=== PATIENT | female | born 1970 | race African-American/Black ===

== ENCOUNTER 2017-01-03 20:23 | Inpatient (IN) ==
[2017-01-03] MEDS ORDERED: SODIUM CHLORIDE 0.9% 1,000 ML IV STA (20:51)
[2017-01-03] MEDS ORDERED: PANTOPRAZOLE 40 MG VIAL IV STA (20:51)
[2017-01-03] MEDS ORDERED: ONDANSETRON 4 MG/2 ML VIAL IV STA ×2 (20:51→21:55)
[2017-01-03] MEDS ORDERED: DICYCLOMINE 20 MG/2 ML AMP IM ONE ×2 (20:51→21:05)
[2017-01-03] MEDS ORDERED: METOCLOPRAMIDE 10 MG/2 ML VIAL IV STA (20:51)
--- NOTE | 2017-01-03 20:56 | Emergency Department Note ---
Arrival - Arrival Chief Complaint: Abdominal / Flank Pain Stated Complaint: throwing up ED Nursing Triage Note: Patient complains of vomiting and upper abdomen pain that began on Sunday. Patient actively vomiting upon triage. Patient unable to supply medical history due to vomiting upon triage. Mode of Arrival: Ambulatory Limitations: No Limitations Source: Patient Time Seen by Provider: 01/03/17 20:50 - History of Present Illness HPI Narrative: This 38-year-old black female presents with 3 days of continuous midepigastric crampy abdominal pain associated with nausea and vomiting but without chills, fever, diarrhea, reflux, heartburn, history of pancreatitis, or history of inflammatory bowel disease. The patient does state she has had a history of peptic ulcer disease in the past. Family members relate that she has this situation occur sporadically and in April of this past year has had endoscopy which revealed no etiology for the symptoms. Currently the patient appears uncomfortable and groaning but in no acute medical distress. Onset (ago): day(s) (Patient presents 3 days post onset of symptom) Date of Last Menstrual Period: 12/08/2016 Allergies/Adverse Reactions: Allergies Allergy/AdvReac Type Severity Reaction Status Date / Time No Known Allergies Allergy Unverified 01/03/17 20:30 Home Medications: Home Medications Medication Instructions Recorded Confirmed Type Unable To Obtain [Unable to Obtain] 01/03/17 01/03/17 History Review of System - Review of System 12 point system: reviewed and no additional remarkable complaints except as stated - Review of System Constitutional: Present: as per HPI Gastrointestinal: Present: as per HPI Medical,Surgical,& Family Hx - Social History Smoking Status: Never smoker Frequency of Alcohol Use: None Type of Drug Use: None Exam Physical Examination: GENERAL: Well developed, well nourished black female groaning but in no acute distress. HEENT: Normocephalic. No trauma. Moist mucous membranes. EOMI. PERRLA. ENT NML NECK: Supple. No adenopathy. CARDIAC: Regular. No murmurs. Heart rate 100 CHEST: Clear to auscultation. No respiratory distress. O2 sat 100% ABDOMEN: Soft. Exquisite midepigastric tenderness with hypoactive bowel sounds. EXTREMITIES: No trauma. Normal ROM. No pedal edema. SKIN: No diaphoresis. No rash. NEURO: Alert. Neuro intact no focal deficits. Vital Signs: Vital Signs Temperature 97.3 F L 01/03/17 20:35 Pulse Rate 100 H 01/03/17 20:35 Respiratory Rate 18 01/03/17 20:35 Blood Pressure 151/92 01/03/17 20:35 O2 Sat by Pulse Oximetry 100 01/03/17 20:31 Course - Reevaluation(s) Reevaluation #1: Discussed with patient the need for further evaluation and treatment given her evidence of rhabdo myelolysis and history of peptic ulcer disease. - Consultations Consultation #1: Discussed with hospitalist service will admit for further evaluation treatment. Results - Labs CBC & BMP: 01/03/17 21:11 01/03/17 21:11 Labs: I reviewed the lab and noted the low hematocrit, low potassium, and significantly elevated CK. - Impressions EKG: Sinus rhythm at 78 with normal IN interval and QRS duration. Nonspecific ST changes. Evidence of old inferior NC. No acute injury pattern noted. - Diagnostic Findings Procedure: CT Abdomen and Pelvis: image reviewed by me, report reviewed by me ( No evidence of significant GI disease although bulky fibroid uterus noted with largest fibroid approximately 5 cm in diameter.) Disposition Clinical Impression: Chronic abdominal pain, Anemia, Rhabdomyolysis, Fibroid uterus Case discussed with: patient, patient's family Disposition: Still a Patient Condition: Stable Time of Disposition: 00:32
[2017-01-03] MEDS ORDERED: METOCLOPRAMIDE 10 MG/2 ML VIAL ONE (21:05)
[2017-01-03] MEDS ORDERED: PANTOPRAZOLE 40 MG VIAL IV ONE (21:05)
[2017-01-03] MEDS ORDERED: ONDANSETRON 4 MG/2 ML VIAL ONE ×2 (21:05→21:56)
[2017-01-03 21:27] LABS: Basophils % 0.3 % (0.0-0.8); Eosinophils % 0.1 % (0.00-10.9); Hematocrit 29.7 VOL% (35.7-47.0); Hemoglobin 9.4 GM/DL (12.0-16.0); Immature Granulocytes % 0.3 %; Immature Granulocytes Absolute 0.03 #; Lymphocytes # 2.1 10*3/uL (1.4-4.0); Lymphocytes % 24.8 % (21.3-54.2); Mean Corpuscular HGB Conc 31.6 GM/DL (32-36); Mean Corpuscular Hemoglobin 22 PG (27-34); Mean Corpuscular Volume 69.2 FL (87-102); Mean Platelet Volume 10.4 FL (9.6-12.0); Monocytes # 0.7 10*3/uL (0.11-0.8); Monocytes % 8.5 % (1.7-12.7); Neutrophils # 5.7 10*3/uL (1.4-7.4); Platelet Count 588 T/CUMM (130-400); Red Blood Count 4.29 MC/CUMM (3.8-5.5); Red Cell Distribution Width 17.9 % (9.3-17.3); White Blood Count 8.6 T/CUMM (4-12)
[2017-01-03 22:02] LABS: Lactic Acid 2.5 MMOL/L (0.4-2.0)
[2017-01-03 22:12] LABS: Alanine Aminotransferase 47 U/L (13-56); Albumin 4.6 G/DL (3.4-5.0); Alkaline Phosphatase 183 U/L (45-117); Amylase 51 U/L (25-115); Aspartate Amino Transferase 109 U/L (0-37); Blood Urea Nitrogen 18 MG/DL (7-18); CKMB % 0.3 %; Calcium 10.2 MG/DL (8.5-10.1); Glucose 123 MG/DL (74-106); Osmolality,Calculated 279.5 MOS/KG (273-304); Potassium 3.4 MMOL/L (3.5-5.1); Sodium 139 MMOL/L (136-145); Total Protein 9.3 G/DL (6.4-8.3); Troponin I Only < 0.015 NG/ML (0.00-0.045)
--- NOTE | 2017-01-03 22:49 | Order Completion Report ---
See report scanned to EMR
[2017-01-03 23:19] LABS: Apearance,Urine CLEAR (Clear); Bilirubin,Urine Negative (Negative); Blood, Urine Negative (Negative); Glucose,Urine (UA) Negative (Negative); Ketones,Urine 5 mg/dL (Negative); Mucus,Urine Occasional /LPF (Occasional); Nitrite,Urine Negative (Negative); Protein,Urine Negative; RBC,Urine 1 /HPF (0-4); Squamous Epithelial Cell,Urine Occasional /HPF (0-10); Urine Color Straw (Yellow); Urine Specific Gravity 1.033 (1.001-1.035); Urine Urobilinogen < 2.0 EU/DL (0.2-1.0); WBC,Urine 1 /HPF (0-6)
[2017-01-03 23:30] LABS: Barbiturates Screen,Urine Negative (Negative); Benzodiazepines Screen,Urine Negative (Negative); Cannabinoid Screen,Urine Positive (Negative); Opiate Screen,Urine Negative (Negative); Phencyclidine Screen,Urine Negative (Negative)
[2017-01-03] MEDS ORDERED: PROMETHAZINE 25 MG/1 ML VIAL IM STA (23:38)
[2017-01-03] MEDS ORDERED: PROMETHAZINE 25 MG/1 ML VIAL ONE (23:40)
[2017-01-04] MEDS ORDERED: KETOROLAC 30 MG/1 ML VIAL IV STA (00:21)
[2017-01-04] MEDS ORDERED: ONDANSETRON 4 MG/2 ML VIAL IV PRN (00:28)
[2017-01-04] MEDS ORDERED: PROMETHAZINE 25 MG/1 ML VIAL IM PRN (00:28)
[2017-01-04] MEDS ORDERED: ACETAMINOPHEN 325 MG TABLET PO PRN (00:28)
[2017-01-04] MEDS ORDERED: POTASSIUM CHLORIDE RIDER 10 MEQ in PREMIX 1 EACH IV PRN (00:28)
[2017-01-04] MEDS ORDERED: MAGNESIUM SULF RIDER 2 GM in PREMIX 1 EACH IV PRN (00:28)
[2017-01-04] MEDS ORDERED: HYDROmorphone 2 MG/1 ML VIAL IV PRN (00:28)
[2017-01-04] MEDS ORDERED: MAGNESIUM SULF RIDER 4 GM in PREMIX 1 EACH IV PRN (00:28)
[2017-01-04] MEDS ORDERED: SODIUM CHLORIDE 0.9% 500 ML IV STA (00:38)
--- NOTE | 2017-01-04 00:50 | Hospitalist History & Physical ---
Assessment and Plan (1) Gastroenteritis Status: Acute Current Visit: Yes (2) Acute kidney injury Status: Acute Current Visit: Yes (3) Rhabdomyolysis Status: Acute Current Visit: Yes (4) Increase in transaminases Status: Acute Current Visit: Yes (5) Severe sepsis Status: Acute Current Visit: Yes (6) History of hypothyroidism Status: Acute Current Visit: Yes (7) History of esophageal reflux Status: Acute Assessment and plan: Our plan for this patient is to give patient 1.5 L bolus. Recheck her lactate level in 3 hours. Recheck her CPK in 3 hours. Repeat labs in the morning. Put on IV antibiotics. We will check hepatitis panel. Continue home meds as appropriate. Need to follow-up on the final read of the CT scan. I have gone ahead and ordered a ultrasound to further characterize her fibroids as recommended by the CT scan.. Current Visit: Yes History of Present Illness Chief complaint: Abdominal pain nausea vomiting fever History of present illness: Ms. Da Silva is a 46 year old female with past medical history significant for thyroid disorder hypertension and reflux was in normal state of health for the past few days. Patient stated at this time she developed epigastric pain. She has been vomiting multiple times. She is complaining extreme pain and extreme nausea. Patient does look uncomfortable. She reports some fever. Patient had a CT scan of her abdomen that showed a fibroid but no acute changes. I was consulted for admission Home Medications Medication Instructions Recorded Confirmed Type Unable To Obtain [Unable to Obtain] 01/03/17 01/03/17 History Allergies Allergy/AdvReac Type Severity Reaction Status Date / Time No Known Allergies Allergy Unverified 01/03/17 20:30 Medical,Surgical,& Family Hx - Surgical History Surgical History: noncontributory (Patient denies) - Family History Family History: noncontributory (Patient denies) - Social History Smoking Status: Never smoker Frequency of Alcohol Use: None Type of Drug Use: None (Marijuana positive) 12 point system: reviewed and no additional remarkable complaints except as stated Exam - Constitutional Vitals: Period Temp Pulse Resp BP Sys/Valencia Pulse Ox Last 24 Hr 97.3 F-97.3 F 100-100 18-22 151-151/92-92 100 General appearance: normal weight - Head Head exam: Present: normal inspection - Eye Eye exam: Present: EOMI Pupils: Present: KATELIN - ENT ENT exam: Present: normal exam - Neck Neck exam: Present: normal inspection - Respiratory Respiratory exam: Present: clear to auscultation bilaterally - Cardiovascular Cardiovascular exam: Present: regular rate and rhythm - GI/Abdominal GI/Abdominal exam: Present: hypoactive bowel sounds, tenderness (Epigastric), soft. Absent: rebound - Extremities Exam Extremities exam: Present: normal inspection - Back Exam Back exam: Present: normal inspection - Neurological Exam Neurological exam: Present: alert - Psychiatric Psychiatric exam: Present: normal affect Results - Labs CBC & BMP: 01/03/17 21:11 01/03/17 21:11
[2017-01-04] MEDS ORDERED: KETOROLAC 30 MG/1 ML VIAL ONE (00:59)
[2017-01-04] MEDS: POTASSIUM CHLORIDE INJ 20 MEQ in SODIUM CHLORIDE 0.45% 1,000 ML IV SCH (02:28)
[2017-01-04] MEDS: CIPROFLOXACIN INJ 400 MG in PREMIX 1 EACH IV SCH ×2 (02:28→13:56)
[2017-01-04] MEDS: metroNIDAZOLE INJ 500 MG in PREMIX 1 EACH IV SCH ×3 (04:22→20:02)
[2017-01-04 06:01] LABS: Free T4 (Free Thyroxine) 1.66 NG/DL (0.76-1.46); Thyroid Stimulating Hormone < 0.005 uIU/ml (0.358-3.74)
--- NOTE | 2017-01-04 06:29 | CT Report ---
History: Small bowel obstruction. Abdominal pain Date: 01/03/2017 Study: CT abdomen and pelvis with IV and oral contrast Comparison exam: December 02, 2007 The study was also reviewed by [facility]. Technique: Spiral CT sections were obtained from the lung bases to the pubic symphysis following oral contrast and 100 mL Omnip[address] abdomen: The partially visualized lung bases are generally clear. There is no gross pleural or pericardial effusion. There is some minimal diffuse fatty infiltration of the liver. The gallbladder is surgically absent. The spleen, pancreas, bile ducts, adrenal glands, and kidneys are unremarkable in appearance. There is a circumaortic left renal vein. There is bilateral renal excretion without hydronephrosis. There is no aneurysm of the mildly calcified abdominal aorta. There is no landen bowel obstruction. The appendix is normal. There is no abnormal fluid collection in the upper abdomen. There is no obvious lymphadenopathy by short axis diameter criteria. There is moderate degenerative disc narrowing at L5-S1 with vacuum disc phenomena and moderate anterior spondylosis. CT pelvis: There is bulky lobular enlargement of the uterus, presumably related to leiomyomatous change. There is no pelvic mass or pelvic lymphadenopathy otherwise. The CT exam was performed using one or more of the following dose reduction techniques: Automated exposure control, adjustment of the mA and/or kV according to patient size, or use of iterative reconstruction technique. Impression: Bulky lobular enlargement of the uterus, presumably to leiomyomatous change. Recommend further evaluation with ultrasound to help exclude other underlying pathology No acute process otherwise PROCEDURE INTERPRETED AT [facility] [place] DEPARTMENT OF RADIOLOGY Final Report Signed by: Dr. Leslye Law
[2017-01-04 07:23] LABS: Albumin 3.9 G/DL (3.4-5.0); Bilirubin,Total 0.4 MG/DL (0.2-1.0); Calcium 9.1 MG/DL (8.5-10.1); Osmolality,Calculated 276.7 MOS/KG (273-304); Total Protein 7.6 G/DL (6.4-8.3)
[2017-01-04 07:28] LABS: Free T4 (Free Thyroxine) 1.86 NG/DL (0.76-1.46); Thyroid Stimulating Hormone < 0.005 uIU/ml (0.358-3.74)
[2017-01-04 08:14] LABS: Hepatitis A Ab IgM Quant 0.15 Index; Hepatitis A Ab IgM Result Negative (Negative); Hepatitis B Core IgM Quant 0.12 Index; Hepatitis B Core IgM Result Negative (Negative); Hepatitis B Surface Ag Quant 0.51 Index; Hepatitis B Surface Ag Result Negative (Negative); Hepatitis C Virus Ab Quant 0.05 Index; Hepatitis C Virus Ab Result Negative (Negative)
--- NOTE | 2017-01-04 08:47 | Ultrasound Report ---
History: Masslike enlargement of the uterus on CT. Fibroids Date: 01/04/2017 Study: Transabdominal and transvaginal pelvic ultrasound Comparison exam: CT scan of the abdomen and pelvis 01/03/2017 Real-time ultrasound images are captured and archived. Transabdominal pelvic ultrasound: The anteverted uterus measures 84 x 52 x 63 mm using transabdominal measurements. At least 5 individual rounded masses of heterogeneous echogenicity compatible with uterine leiomyomata are noted. These are predominantly mural and subserosal and measure 37 mm maximum diameter and smaller. There is noted be a 14 mm submucosal lesion as well. The endometrial echo is measured at 8 mm. The right ovary measures 26 x 14 x 14 mm and appears normal. There is nonvisualization of portions of the uterus and nonvisualization of the left adnexal region because of body habitus and bowel gas. Transvaginal images were subsequently acquired. Transvaginal pelvic ultrasound: There is a small nabothian cyst in the cervix. The left ovary is identified and measures 23 x 10 x 9 mm, normal in appearance otherwise. There is a tubular fluid-filled structure in the left adnexal area which could represent hydrosalpinx. There is no free fluid in the pelvis. Impression: Numerous uterine leiomyomata. Evidence of hydrosalpinx on the left. PROCEDURE INTERPRETED AT [facility] DEPARTMENT OF RADIOLOGY Final Report Signed by: Dr. Leslye Law
[2017-01-04 09:30] LABS: Basophils % 0.1 % (0.0-0.8); Hematocrit 25.1 VOL% (35.7-47.0); Hemoglobin 7.9 GM/DL (12.0-16.0); Immature Granulocytes % 0.6 %; Immature Granulocytes Absolute 0.05 #; Lymphocytes # 1.5 10*3/uL (1.4-4.0); Lymphocytes % 16.8 % (21.3-54.2); Mean Corpuscular HGB Conc 31.5 GM/DL (32-36); Mean Corpuscular Hemoglobin 22 PG (27-34); Mean Corpuscular Volume 69.3 FL (87-102); Mean Platelet Volume 10.4 FL (9.6-12.0); Monocytes # 0.7 10*3/uL (0.11-0.8); Monocytes % 8.4 % (1.7-12.7); Neutrophils # 6.5 10*3/uL (1.4-7.4); Neutrophils % 74.1 % (38.7-73.9); Red Blood Count 3.62 MC/CUMM (3.8-5.5); Red Cell Distribution Width 17.6 % (9.3-17.3); White Blood Count 8.7 T/CUMM (4-12)
[2017-01-04 09:31] LABS: Platelet Count 457 T/CUMM (130-400)
[2017-01-04] MEDS: PANTOPRAZOLE 40 MG TABLET PO SCH ×2 (09:43→21:07)
[2017-01-04] MEDS: ENOXAPARIN 40 MG/0.4 ML SYRINGE SUBCUT SCH (09:43)
[2017-01-04] MEDS: SODIUM CHLOR 0.45% KCL 20 MEQ 20 MEQ/1,000 ML BAG IV SCH (13:50)
--- NOTE | 2017-01-04 15:27 | Hospitalist Progress Note ---
Assessment and Plan (1) Gastroenteritis Status: Acute Assessment and plan: NS at 150 ml/hr, cipro and flagyl IV Current Visit: Yes (2) Elevated CPK Status: Acute Assessment and plan: no evidence of rhabdo Current Visit: Yes (3) Hyperthyroidism Status: Acute Assessment and plan: increase tapazole to 10 mg po tid Current Visit: Yes (4) Acute kidney injury Status: Acute Assessment and plan: resolved Current Visit: Yes (5) Increase in transaminases Status: Acute Assessment and plan: Improving without intervention. Question whether patient is an alcoholic. Hepatitis screen is negative Current Visit: Yes (6) Microcytic anemia Status: Acute Assessment and plan: Iron studies needs iron transfusion. Ultrasound shows leiomyomata. need hysterectomy Current Visit: Yes Hospitalist: Subjective Interval history: Patient feels better today. Will advance her diet. Apparently she ate some mayonnaise from a sandwich that she had gotten at a restaurant prior to becoming ill. Exam - Constitutional Vitals: Period Temp Pulse Resp BP Sys/Valencia Pulse Ox Last 24 Hr 97.3 F-98.4 F 68-100 18-22 90-151/50-92 97-100 Exam: Heart Rate-[RRR] Lungs-[CTAB] GI-[+bs soft, NT, cachetic ] Ext-[no edema] Neuro [Motor 5/5], [alert and oriented times 3] psych [normal mood and affect] General [no acute distress] Results - Labs CBC & BMP: 01/04/17 09:17 01/04/17 06:28 Lab Results: I have reviewed the past 24 hour labs - Diagnostic Findings Procedure: CT Abdomen and Pelvis: report reviewed by me, pending (Bulky lobular enlarged uterus, numerous uterine leiomyomata)
[2017-01-04] MEDS ORDERED: methylPREDNISolone SOD SUC 40 MG/1 ML VIAL IV SCH (15:30)
[2017-01-04 16:16] LABS: % Iron Saturation 3.3 % (18-50); Ferritin 5.9 ng/ml (8-252)
[2017-01-04] MEDS ORDERED: IRON DEXTRAN 25 MG in SYRINGE 1 EACH IV ONE (17:30)
[2017-01-04] MEDS ORDERED: SODIUM CHLORIDE 0.9% IV ONE ×2 (18:30→21:00)
[2017-01-04] MEDS ORDERED: IRON DEXTRAN IV ONE ×2 (18:30→21:00)
--- NOTE | 2017-01-04 19:58 | Gastrointestinal Consult Note ---
Assessment and Plan (1) Cyclical vomiting with nausea Status: Acute Assessment and plan: This patient states that she has been having 2-4 episodes of hospitalization per year for the last 15 years. She has been had multiple workups done by Dr. Abbott and by Dr. Xiong before him and probably several other gastroenterologists over the years. She states that she is already had her gallbladder taken out and the numerous scopes have demonstrated no significant cause for the patient's nausea/vomiting. She has had Helicobacter pylori in the past but presumably this is been treated. We will check a stool antigen test for this and attempt to get the patient's most recent EGD from [facility] and Dr. Abbott. The patient appears to have a significant iron deficiency anemia. With a hematocrit at 25.1 hemoglobin of 7.9 but also a MCV of 69.3. Patient is getting iron dextran since her iron was noted to be 15 with a TIBC of 461 and a ferritin level of 5.9. Interestingly her creatinine kinase was noted to be elevated at 2612 with an ALT of 47, AST of 109, alkaline phosphatase 183, and a bilirubin of 0.4. Amylase and lipase levels are normal at 51 and 72 respectively. Given the recurrence of this patient's symptoms I think we need to broaden our potential diagnoses. I am going to check her for G6PD deficiency, sickle cell anemia, and acute intermittent porphyria. One would imagine that if she had been acicular she certainly would have ulcers on her extremities not in the visceral system and so I believe the acute intermittent porphyria is probably somewhat more likely and so will check for delta aminolevulinic acid spot checking the urine as well as total porphyrins and urine porphobilinogen. Current Visit: Yes (2) Epigastric abdominal tenderness Status: Acute Assessment and plan: Again I suspect this patient has had enough endoscopies done at this point, we will check for Helicobacter pylori in the stools however cyclics pain and previous negative GI workup is making us expand our differential at this point to include rare etiologies as mentioned above. Certainly the patient is iron deficient at this time and agree with iron dextran. We will try and get the patient's old EGD results from Dr. Abbott/[place] done in April of this year. I suspect the patient may feel better and be able to be discharged from the hospital but would suggest a follow-up in the office. Current Visit: Yes (3) Iron deficiency anemia Status: Acute Assessment and plan: Agree with treatment with iron dextran. We will continue to follow this after the patient's discharge from the hospital to see if she is fine in between episodes and then develops hemolysis. Current Visit: Yes History of Present Illness Chief complaint: Cyclic nausea and vomiting with extreme abdominal pain History of present illness: Ms. Da Silva is a 46 year old female who has recurrent cyclical episodes of nausea and that have been going on for the last 15 years. She states that she gets hospitalized about 2-4 times per year the only thing she can do is to come in when the pain becomes so severe and vomiting becomes intractable to get IV fluids and some low-level pain medication. Sometimes she is placed on antibiotics as she has been this admission. She states that she has been through numerous GI workups including her most recent EGD done by Dr. Abbott over [facility] in April 2016 (we are attempting to get these records). Patient has been scoped numerous times by Dr. Xiong in the past, 1 of these is on record at the [facility] verifying with the patient stated that nothing was found of any significance: Dr. Xiong scoped this patient on 08/19/07 and so some mild focal gastritis with biopsies that demonstrated positive tissue for Helicobacter pylori. I imagine this is already been treated at this point. Patient has undergone cholecystectomy previously, she states that she is undergone small bowel follow-through in the past and even capsule endoscopy with Dr. Xiong at [facility]. Unfortunately these records are lost to us but he did not mention this in his previous evaluation of 08/21/07. CT scan this admission in the hospital demonstrated normal spleen, pancreas, bile ducts , adrenal glands and kidneys. Again there was bulky enlargement of the uterus due to leiomyomas but this was otherwise unremarkable. The patient feels better now the sharp stabbing pain has abated but she still has some dull achiness in her epigastric region from vomiting. She states that when these episodes do occur they last about 2 days. She has fevers but no chills. She sometimes has sweating in association with these episodes. I am not sure if she has been worked up for acute intermittent porphyria, but I believe this would be helpful at this point. Home Medications Medication Instructions Recorded Confirmed Type amLODIPine [Norvasc] 10 mg PO DAILY 01/04/17 01/04/17 History methIMAzole [Tapazole] 5 mg PO TID 01/04/17 01/04/17 History Allergies Allergy/AdvReac Type Severity Reaction Status Date / Time No Known Allergies Allergy Unverified 01/03/17 20:30 Medical,Surgical,& Family Hx - Medical History Cardio: History of: Hypertension HEENT: History of: Ear Problem (Glasses) - Surgical History Abdominal Surgeries: Surgical HX of: Cholecystectomy, Colonoscopy, EGD - Social History Smoking Status: Never smoker Frequency of Alcohol Use: None Type of Drug Use: None (Marijuana positive) Review of systems: Constitutional: Admits to fever without chills, but positive for recurrent nausea, and vomiting Eyes: Denies dry eyes, and scleral icterus HENT: Denies headaches Cardiovascular: Denies acute chest pain and claudication Respiratory: Denies shortness of breath, wheezing, and difficulty breathing, denies cough Gastrointestinal: As noted in the HPI Genitourinary: Denies dysuria and hematuria Neurologic: Denies vision loss, and loss of sensation Musculoskeletal: Denies joint swelling, but does have some joint stiffness, and muscular weakness Psychiatric: Denies depression and rosibel symptoms Heme-Lymph: Denies easy bruising, lymph node enlargement or tenderness, night sweats, excessive bleeding Allergies-immunologic: Denies pruritus and rhinorrhea Exam - Constitutional Vitals: Period Temp Pulse Resp BP Sys/Valencia Pulse Ox Last 24 Hr 97.3 F-98.7 F 67-100 18-22 90-151/50-92 97-100 General appearance: normal weight - Head Head exam: Present: normal inspection - Eye Eye exam: Present: EOMI Pupils: Present: KATELIN - Respiratory Respiratory exam: Present: clear to auscultation bilaterally. Absent: rhonchi, stridor, wheezes - Cardiovascular Cardiovascular exam: Present: regular rate and rhythm. Absent: bradycardia, diastolic murmur, systolic murmur - GI/Abdominal GI/Abdominal exam: Present: normal bowel sounds, tenderness (From the epigastric region to deep palpation thought secondary to soreness due to nausea and vomiting), soft. Absent: distended, guarding, rebound - Neurological Exam Neurological exam: Present: alert, oriented X3, CN II-XII intact. Absent: motor sensory deficit - Psychiatric Psychiatric exam: Present: normal affect, normal mood - Skin Skin exam: Present: warm Results - Labs CBC & BMP: 01/04/17 09:17 01/04/17 06:28
[2017-01-04] MEDS ORDERED: PROPYLTHIOURACIL 50 MG TABLET PO SCH (21:00)
[2017-01-04] MEDS: methIMAzole 5 MG TABLET PO SCH (21:07)
[2017-01-04] MEDS: SODIUM CHLORIDE 0.9% 1,000 ML IV SCH (21:08)
[2017-01-05] MEDS: SODIUM CHLOR 0.45% KCL 20 MEQ 20 MEQ/1,000 ML BAG IV SCH ×4 (01:16→16:42)
[2017-01-05] MEDS: POTASSIUM CHLORIDE INJ 20 MEQ in SODIUM CHLORIDE 0.45% 1,000 ML IV SCH (01:16)
[2017-01-05] MEDS: metroNIDAZOLE INJ 500 MG in PREMIX 1 EACH IV SCH ×3 (04:30→22:04)
[2017-01-05] MEDS: CIPROFLOXACIN INJ 400 MG in PREMIX 1 EACH IV SCH ×2 (05:28→16:10)
[2017-01-05] MEDS: SODIUM CHLORIDE 0.9% 1,000 ML IV SCH ×4 (05:36→17:20)
[2017-01-05] MEDS: ENOXAPARIN 40 MG/0.4 ML SYRINGE SUBCUT SCH (08:31)
[2017-01-05] MEDS: methIMAzole 5 MG TABLET PO SCH ×3 (08:31→22:03)
[2017-01-05] MEDS: PANTOPRAZOLE 40 MG TABLET PO SCH ×2 (08:31→22:04)
[2017-01-05 08:42] LABS: Basophils % 0.6 % (0.0-0.8); Eosinophils # 0.1 10*3/uL (0.0-0.87); Eosinophils % 1.9 % (0.00-10.9); Hematocrit 23.3 VOL% (35.7-47.0); Hemoglobin 7.4 GM/DL (12.0-16.0); Immature Granulocytes % 0.3 %; Immature Granulocytes Absolute 0.02 #; Lymphocytes # 2.4 10*3/uL (1.4-4.0); Lymphocytes % 37.5 % (21.3-54.2); Mean Corpuscular HGB Conc 31.8 GM/DL (32-36); Mean Corpuscular Hemoglobin 22 PG (27-34); Mean Corpuscular Volume 70.2 FL (87-102); Monocytes # 0.5 10*3/uL (0.11-0.8); Monocytes % 7.4 % (1.7-12.7); Neutrophils # 3.4 10*3/uL (1.4-7.4); Neutrophils % 52.3 % (38.7-73.9); Platelet Count 401 T/CUMM (130-400); Red Blood Count 3.32 MC/CUMM (3.8-5.5); Red Cell Distribution Width 17.8 % (9.3-17.3); White Blood Count 6.5 T/CUMM (4-12)
[2017-01-05 09:02] LABS: Alanine Aminotransferase 31 U/L (13-56); Albumin 3.2 G/DL (3.4-5.0); Alkaline Phosphatase 139 U/L (45-117); Aspartate Amino Transferase 38 U/L (0-37); Bilirubin,Total < 0.39 MG/DL (0.2-1.0); Blood Urea Nitrogen 7 MG/DL (7-18); Calcium 8.7 MG/DL (8.5-10.1); Glucose 118 MG/DL (74-106); Osmolality,Calculated 277.4 MOS/KG (273-304); Potassium 3.8 MMOL/L (3.5-5.1); Sodium 140 MMOL/L (136-145); Total Protein 6.6 G/DL (6.4-8.3)
--- NOTE | 2017-01-05 10:24 | Discharge Summary ---
<Roopa Franco - Last Filed: 01/05/17 11:02> Hospital Course - Hospital Course Hospital Course: Mr Da Silva 46 y/o w/PMHx peptic ulcer disease presented to the ED 01/03/17 for further evaluation of 3 days of continuous midepigastric abd pain, N/V. IN ED: Normal WBC, Stable h&H. K 3.4, Creatinine 1.20, Glucose 123, Lactic acid 2.5, AST 109, Alkaline Phosphatase 183, Total Creatine Kinase 2612, CK-MB 6.7, Protein 9.3, urinalysis negative for infection. Toxicology positive for cannabinoids, Hepatitis panel negative. Abd CT: bulky lobular enlargement of uterus, presumably leiomyomatous change, nothing acute. Pelvis US: numerous uterine leiomyomata, evidence of hydrosalpinx on the left. Hospital Medicine is consulted for further evaluation. Admit;start 1.5 L bolus, recheck lactate level in 3 hours, recheck CPK in 3 hours and repeat labs in the morning; IV antibiotics, blood culture obtained in the ED, and GI consulted. Free T4 1.86, TSH <0.005. Patient's nausea and vomiting was thought to be secondary to gastroenteritis but it also could be due to the exacerbation of her hyperthyroidism. As a precaution we will treat her with a few more days of Cipro p.o. Blood cultures negative no growth. Patient already being treated with Tapazole for hyperthyroidism. We will increase the Tapazole to 10 mg 3 times a day. I am sending her up to see an endocrine doctor at [facility]. Patient has microcytic anemia and needs a hysterectomy. I have given her an iron infusion. Her anemia is stable and does not require a blood transfusion at this time. Patient recently had an EGD at [place]. Patient will be discharged home to follow-up with the women[facility] clinic for hysterectomy and with endocrine at [facility] as she will need radiation to her thyroid to treat her hyperthyroidism. F /U with PMD in 1-2 weeks Patient seen and examined. Hospital course reviewed and edited. Specialty Discharge - Follow Up or Referrals [facility] with: [facility], [facility] [Other] - 2 Weeks (enlarged uterus and anemia, needs hysterectomy call sunday morning to [facility] at [phone] to make any appointment.) endocrine, [facility] [Other] - 04/04/17 2:00 pm (Dr. Hernandez fax- [phone] phone- ) Discharge Plan - Discharge Data Disposition: Disch To Home/Self Care - Discharge Medications New Ondansetron Tab [Zofran Tab] 4 mg PO Q4H #30 tablet Ciprofloxacin Tab [Cipro Tab] 500 mg PO BID #14 tablet Changed methIMAzole [Tapazole] 10 mg PO TID #180 tablet Discontinued amLODIPine [Norvasc] 10 mg PO DAILY - Follow Up or Referral Follow Up: [facility], [facility] [Other] - 2 Weeks (enlarged uterus and anemia, needs hysterectomy call sunday morning to [facility] at [phone] to make any appointment.) endocrine, [facility] [Other] - 04/04/17 2:00 pm (Dr. Hernandez fax- [phone] phone- ) pmd, [Other] - 1 Week - Forms/Instructions Instructions: Gastroenteritis (DC) Exam - Constitutional Vitals: Period Temp Pulse Resp BP Sys/Valencia Pulse Ox Last 24 Hr 98.0 F-98.7 F 59-67 16-20 106-148/49-78 96-98 Discharge Results Procedures and tests throughout hospitalization: Pending Orders 01/03/17 22:59 Blood Culture Stat 01/04/17 20:04 Helicobacter pylori Ag Feces Routine 01/05/17 07:56 Yeuzmjq-6-Koukfsgxx Dehydrogen IN AM 01/06/17 04:00 CMP [Comprehensive Metabolic Panel] IN AM Comp Blood Count Auto Diff IN AM 01/07/17 04:00 CMP [Comprehensive Metabolic Panel] IN AM Comp Blood Count Auto Diff IN AM Labs on day of discharge: Labs from last 24 hours 01/05/17 01/05/17 01/05/17 07:56 07:56 07:56 WBC 6.5 RBC 3.32 L Hgb 7.4 L Hct 23.3 L MCV 70.2 L MCH 22 L MCHC 31.8 L RDW 17.8 H Plt Count 401 H MPV 11.0 Neut % (Auto) 52.3 Lymph % (Auto) 37.5 [place] % (Auto) 7.4 Eos % (Auto) 1.9 Baso % (Auto) 0.6 Neut # (Auto) 3.4 Lymph # (Auto) 2.4 [place] # (Auto) 0.5 Eos # (Auto) 0.1 Baso # (Auto) 0.0 Immature Gran % 0.3 Nucleated RBC % 0.0 Immature Gran # 0.02 Nucleated RBCs # 0.00 Immature Plt Fraction 0.0 Sickle Cell Screen Negative Sodium 140 Potassium 3.8 Chloride 107 Carbon Dioxide 26 Anion Gap 10.8 BUN 7 Creatinine 0.90 GFR Calculation 76 BUN/Creatinine Ratio 7.00 Glucose 118 H Hemoglobin A1c Calculated Osmolality 277.4 Calcium 8.7 Iron TIBC % Saturation Ferritin Total Bilirubin < 0.39 AST 38 H ALT 31 Alkaline Phosphatase 139 H Total Protein 6.6 Albumin 3.2 L Globulin 3.4 Albumin/Globulin Ratio 0.9 L 01/04/17 01/04/17 Unknown Unknown WBC RBC Hgb Hct MCV MCH MCHC RDW Plt Count MPV Neut % (Auto) Lymph % (Auto) [place] % (Auto) Eos % (Auto) Baso % (Auto) Neut # (Auto) Lymph # (Auto) [place] # (Auto) Eos # (Auto) Baso # (Auto) Immature Gran % Nucleated RBC % Immature Gran # Nucleated RBCs # Immature Plt Fraction Sickle Cell Screen Sodium Potassium Chloride Carbon Dioxide Anion Gap BUN Creatinine GFR Calculation BUN/Creatinine Ratio Glucose Hemoglobin A1c 5.4 Calculated Osmolality Calcium Iron 15 L TIBC 461 H % Saturation 3.3 L Ferritin 5.9 L Total Bilirubin AST ALT Alkaline Phosphatase Total Protein Albumin Globulin Albumin/Globulin Ratio Preliminary micro results at discharge 01/03/17 22:59 Blood Culture - Preliminary Blood No growth at 1 day 01/03/17 22:59 Blood Culture - Preliminary Blood No growth at 1 day DS: Provider Date of admission: 01/04/17 00:46 Primary care physician: . No PCP Attending physician on admission: Danilo Houston MD Consults: 01/04/17 00:28 Consult to Physician [CONS] Routine Comment: Consulting Provider: Maximilian Chance Consulting Provider Notified: Yes When should Consulting Provider be notified: Now Consult to Specialist Group: Gastroenterology When should Consulting Provider be notified: In am Person Notified: flaca mckay Date Notified: 01/04/17 Time Notified: 08:20 01/04/17 15:22 Consult to Pharmacy [CONS] Routine Reason for Pharmacy Consult: Other Comment: iron infusion please calculate and infuse Discharging clinician: Roopa Franco NP <Vandana Rothman - Last Filed: 01/05/17 13:26> Hospital Course - Time spent with patient Time with patient DS: Greater than 30 minutes (45 min) Diagnosis - Discharge Diagnosis (1) Gastroenteritis Status: Acute (2) Elevated CPK Status: Acute (3) Hyperthyroidism Status: Acute (4) Acute kidney injury Status: Acute (5) Increase in transaminases Status: Acute (6) Microcytic anemia Status: Acute Discharge Plan - Discharge Data Condition at Discharge: Stable Discharge Diet: regular diet Activity: resume usual activities as tolerated Hygiene: no restrictions Weight Bearing at Discharge: full weight bearing Driving: no restrictions Exam - Constitutional General appearance: no acute distress, under weight - Respiratory Respiratory exam: Present: clear to auscultation bilaterally. Absent: rhonchi, wheezes - Cardiovascular Cardiovascular exam: Present: regular rate and rhythm. Absent: systolic murmur - GI/Abdominal GI/Abdominal exam: Present: normal bowel sounds, soft. Absent: mass - Neurological Exam Neurological exam: Present: alert, oriented X3 - Psychiatric Psychiatric exam: Present: normal affect, normal mood
[2017-01-05] MEDS ORDERED: SODIUM CHLORIDE 0.9% 250 ML IV PRN (12:58)
--- NOTE | 2017-01-05 13:04 | Gastrointestinal Progress Note ---
Assessment and Plan (1) Cyclical vomiting with nausea Status: Acute Assessment and plan: This patient states that she has been having 2-4 episodes of hospitalization per year for the last 15 years. She has been had multiple workups done by Dr. Abbott and by Dr. Xiong before him and probably several other gastroenterologists over the years. She states that she is already had her gallbladder taken out and the numerous scopes have demonstrated no significant cause for the patient's nausea/vomiting. She has had Helicobacter pylori in the past but presumably this is been treated. We will check a stool antigen test for this and attempt to get the patient's most recent EGD from [facility] and Dr. Abbott. The patient appears to have a significant iron deficiency anemia. With a hematocrit at 25.1 hemoglobin of 7.9 but also a MCV of 69.3. Patient is getting iron dextran since her iron was noted to be 15 with a TIBC of 461 and a ferritin level of 5.9. Interestingly her creatinine kinase was noted to be elevated at 2612 with an ALT of 47, AST of 109, alkaline phosphatase 183, and a bilirubin of 0.4. Amylase and lipase levels are normal at 51 and 72 respectively. Given the recurrence of this patient's symptoms I think we need to broaden our potential diagnoses. I am going to check her for G6PD deficiency, sickle cell anemia, and acute intermittent porphyria. One would imagine that if she had been diagnosed with sickle cell anemia she certainly would have ulcers on her extremities not sickling exclusively in the visceral system and so I believe the acute intermittent porphyria is probably somewhat more likely and so will check for delta aminolevulinic acid spot checking the urine as well as total porphyrins and urine porphobilinogen. 01/05/17--the patient's hematocrit is dropped even further today down to 23.3%. MCV is slightly better with a iron dextran she has been given. Patient has clear iron deficiency anemia, the laboratory workup outlined yesterday will not be back for days to weeks. I will be happy to follow her up in 6 weeks in my office to give her the information on what we found today. I think it that I personally would feel more comfortable the patient was discharged from the hospital with a better hematocrit and so we will write for 2 units packed red blood cells today before she goes home this afternoon. Current Visit: Yes (2) Epigastric abdominal tenderness Status: Acute Assessment and plan: Again I suspect this patient has had enough endoscopies done at this point, we will check for Helicobacter pylori in the stools however cyclics pain and previous negative GI workup is making us expand our differential at this point to include rare etiologies as mentioned above. Certainly the patient is iron deficient at this time and agree with iron dextran. We will try and get the patient's old EGD results from Dr. Abbott/Eduardo done in April of this year. I suspect the patient may feel better and be able to be discharged from the hospital but would suggest a follow-up in the office. 01/05/17--this patient has had multiple workups by 2 different GI physicians and with cyclic nausea and vomiting with severe abdominal pain we are continuing the workup to more esoteric diagnoses if the acute intermittent porphyria workup is also negative we can think about checking for heavy metals (poisoning ) possibly related repeating the capsule endoscopy. I know that she is getting the iron dextran at this time but I think I will feel more comfortable with her actually having a improved hematocrit as well. Current Visit: Yes (3) Iron deficiency anemia Status: Acute Assessment and plan: Agree with treatment with iron dextran. We will continue to follow this after the patient's discharge from the hospital to see if she is fine in between episodes and then develops hemolysis. 01/05/17--as mentioned above. Okay to DC patient home today after transfusion. I remain concerned that if the patient is released and she has a significant loss of blood, that with a crit of 23% that potential blood loss could be a terminal event. We will give her 2 units before she goes home. Current Visit: Yes Gastroenterology - PN: Subj Interval history: Liyah feels better at this point, she is gotten IV antibiotics and her iron dextran. I am not sure if she is gotten the urine test done for acute intermittent porphyria which sounds like she might have on the basis of the cyclical nausea and vomiting which has had multiple GI workups done by 2 other physicians over a period of 7 years. I do note now the patient has a drop in her hematocrit 23.3% since her admission and although she is gotten her iron dextran treatments she probably needs 2 units of blood before she walks out the door at this point. I will be happy to follow her up in my office in 6 weeks and recheck her labs and discuss further workup at that point. Exam (Progress Note) - Constitutional Vitals: Period Temp Pulse Resp BP Sys/Valencia Pulse Ox Last 24 Hr 98.0 F-98.8 F 59-67 16-20 106-150/49-78 96-98 General appearance: no acute distress - Head Head exam: Present: normal inspection - Eye Eye exam: Present: EOMI - Respiratory Respiratory exam: Present: clear to auscultation bilaterally - GI/Abdominal GI/Abdominal exam: Present: normal bowel sounds, soft. Absent: distended, guarding, tenderness - Extremities Exam Extremities exam: Absent: edema - Neurological Exam Neurological exam: Present: alert, oriented X3 - Psychiatric Psychiatric exam: Present: normal affect, normal mood - Skin Skin exam: Present: warm Results - Labs CBC & BMP: 01/05/17 07:56 01/05/17 07:56 Specialty Discharge - Follow Up or Referrals Follow up with: [facility], [facility] [Other] - 2 Weeks (enlarged uterus and anemia, needs hysterectomy call sunday morning to [facility] at [phone] to make any appointment.) endocrine, [facility] [Other] - 04/04/17 2:00 pm (Dr. Hernandez fax- [phone] phone- )
[2017-01-05] MEDS ORDERED: INFLUENZA VIRUS VACCINE 0.5 ML SYRINGE IM ONE (14:45)
[2017-01-06 02:12] LABS: Basophils # 0.1 10*3/uL (0.0-0.2); Basophils % 0.8 % (0.0-0.8); Eosinophils # 0.2 10*3/uL (0.0-0.87); Eosinophils % 2.2 % (0.00-10.9); Hematocrit 33.9 VOL% (35.7-47.0); Hemoglobin 10.9 GM/DL (12.0-16.0); Immature Granulocytes % 0.2 %; Immature Granulocytes Absolute 0.02 #; Lymphocytes % 32.8 % (21.3-54.2); Mean Corpuscular HGB Conc 32.2 GM/DL (32-36); Mean Corpuscular Hemoglobin 24 PG (27-34); Mean Corpuscular Volume 73.4 FL (87-102); Mean Platelet Volume 10.2 FL (9.6-12.0); Monocytes # 0.7 10*3/uL (0.11-0.8); Neutrophils # 5.3 10*3/uL (1.4-7.4); Platelet Count 414 T/CUMM (130-400); Red Blood Count 4.62 MC/CUMM (3.8-5.5); Red Cell Distribution Width 18.3 % (9.3-17.3); White Blood Count 9.3 T/CUMM (4-12)
[2017-01-06 02:46] LABS: Albumin 3.7 G/DL (3.4-5.0); Bilirubin,Total 0.8 MG/DL (0.2-1.0); Calcium 9.1 MG/DL (8.5-10.1); Osmolality,Calculated 278.3 MOS/KG (273-304); Potassium 3.9 MMOL/L (3.5-5.1); Total Protein 7.4 G/DL (6.4-8.3)
[2017-01-06] MEDS: CIPROFLOXACIN INJ 400 MG in PREMIX 1 EACH IV SCH (04:28)
[2017-01-06] MEDS: metroNIDAZOLE INJ 500 MG in PREMIX 1 EACH IV SCH (06:39)
[2017-01-06] MEDS: SODIUM CHLORIDE 0.9% 1,000 ML IV SCH (09:26)
[2017-01-06] MEDS: SODIUM CHLOR 0.45% KCL 20 MEQ 20 MEQ/1,000 ML BAG IV SCH (09:27)
[2017-01-06] MEDS: PANTOPRAZOLE 40 MG TABLET PO SCH (10:24)
[2017-01-06] MEDS: methIMAzole 5 MG TABLET PO SCH (10:26)
--- NOTE | 2017-01-06 13:06 | Gastrointestinal Progress Note ---
Assessment and Plan (1) Cyclical vomiting with nausea Status: Acute Assessment and plan: This patient states that she has been having 2-4 episodes of hospitalization per year for the last 15 years. She has been had multiple workups done by Dr. Abbott and by Dr. Xiong before him and probably several other gastroenterologists over the years. She states that she is already had her gallbladder taken out and the numerous scopes have demonstrated no significant cause for the patient's nausea/vomiting. She has had Helicobacter pylori in the past but presumably this is been treated. We will check a stool antigen test for this and attempt to get the patient's most recent EGD from [facility] and Dr. Abbott. The patient appears to have a significant iron deficiency anemia. With a hematocrit at 25.1 hemoglobin of 7.9 but also a MCV of 69.3. Patient is getting iron dextran since her iron was noted to be 15 with a TIBC of 461 and a ferritin level of 5.9. Interestingly her creatinine kinase was noted to be elevated at 2612 with an ALT of 47, AST of 109, alkaline phosphatase 183, and a bilirubin of 0.4. Amylase and lipase levels are normal at 51 and 72 respectively. Given the recurrence of this patient's symptoms I think we need to broaden our potential diagnoses. I am going to check her for G6PD deficiency, sickle cell anemia, and acute intermittent porphyria. One would imagine that if she had been diagnosed with sickle cell anemia she certainly would have ulcers on her extremities not sickling exclusively in the visceral system and so I believe the acute intermittent porphyria is probably somewhat more likely and so will check for delta aminolevulinic acid spot checking the urine as well as total porphyrins and urine porphobilinogen. 01/05/17--the patient's hematocrit is dropped even further today down to 23.3%. MCV is slightly better with a iron dextran she has been given. Patient has clear iron deficiency anemia, the laboratory workup outlined yesterday will not be back for days to weeks. I will be happy to follow her up in 6 weeks in my office to give her the information on what we found today. I think it that I personally would feel more comfortable the patient was discharged from the hospital with a better hematocrit and so we will write for 2 units packed red blood cells today before she goes home this afternoon. 01/06/17--patient's hematocrit is now up to 33.9 and MCV is starting to rise as a result of being given iron dextran. She will need to follow-up in my office in 6 weeks as mentioned above will review her laboratories from the hospital that were taken. Current Visit: Yes (2) Epigastric abdominal tenderness Status: Acute Assessment and plan: Again I suspect this patient has had enough endoscopies done at this point, we will check for Helicobacter pylori in the stools however cyclics pain and previous negative GI workup is making us expand our differential at this point to include rare etiologies as mentioned above. Certainly the patient is iron deficient at this time and agree with iron dextran. We will try and get the patient's old EGD results from Dr. Abbott/Eduardo done in April of this year. I suspect the patient may feel better and be able to be discharged from the hospital but would suggest a follow-up in the office. 01/05/17--this patient has had multiple workups by 2 different GI physicians and with cyclic nausea and vomiting with severe abdominal pain we are continuing the workup to more esoteric diagnoses if the acute intermittent porphyria workup is also negative we can think about checking for heavy metals (poisoning ) possibly related repeating the capsule endoscopy. I know that she is getting the iron dextran at this time but I think I will feel more comfortable with her actually having a improved hematocrit as well. 01/06/17--improved. Current Visit: Yes (3) Iron deficiency anemia Status: Acute Assessment and plan: Agree with treatment with iron dextran. We will continue to follow this after the patient's discharge from the hospital to see if she is fine in between episodes and then develops hemolysis. 01/05/17--as mentioned above. Okay to DC patient home today after transfusion. I remain concerned that if the patient is released and she has a significant loss of blood, that with a crit of 23% that potential blood loss could be a terminal event. We will give her 2 units before she goes home. 01/06/17--okay to discharge from my standpoint, will follow back up in 6 weeks. I will sign off at this time, thank you for this interesting consult. Current Visit: Yes Gastroenterology - PN: Subj Interval history: Still doing fine, ready to go home now. Feels much better status post blood transfusion with improved hematocrit from 23.3 percent-->33.9% Exam (Progress Note) - Constitutional Vitals: Period Temp Pulse Resp BP Sys/Valencia Pulse Ox Last 24 Hr 97.5 F-99.4 F 51-66 16-20 103-157/64-98 97-100 General appearance: no acute distress - Head Head exam: Present: normocephalic - Eye Eye exam: Present: EOMI - Respiratory Respiratory exam: Present: clear to auscultation bilaterally - Cardiovascular Cardiovascular exam: Present: regular rate and rhythm - GI/Abdominal GI/Abdominal exam: Present: normal bowel sounds, tenderness (Mild epigastric). Absent: distended, guarding, rebound, soft - Extremities Exam Extremities exam: Absent: edema - Neurological Exam Neurological exam: Present: alert, oriented X3 Results - Labs CBC & BMP: 01/06/17 01:30 01/06/17 01:30 Specialty Discharge - Follow Up or Referrals Follow up with: [facility], [facility] [Other] - 2 Weeks (enlarged uterus and anemia, needs hysterectomy call sunday morning to [facility] at [phone] to make any appointment.) endocrine, [facility] [Other] - 04/04/17 2:00 pm (Dr. Hernandez fax- [phone] phone- ) dr marixa [Other] - 1 Week
[2017-01-06 15:46] VITALS: BP 132/69
--- NOTE | 2017-01-09 13:04 | Physician Query Form ---
CLICK EDIT DOCUMENT TO SELECT QUERY ANSWER --> OK --> SIGN Laury Rodrigues RN Clinical Battery Charger Tester W) [phone] (f) [phone] [email or web address]: Make your selection(s) from the choices in EACH section by typing an "x" and enter comments in the comment section. Please use your independent medical judgment in providing your response. This request does not imply that any particular answer is desired or expected. CLINICAL INDICATORS: (Providers should not edit this section) Based on documentation of "Acute severe sepsis" "Acute gastroenteritis" "Acute iron deficiency anemia" admitting vitals of 97.3, 100, 18, 151/92, 100%. BP as low as 90/50. WBC of 8.6. Lacitc acid of 2.5. "Acute kidney injury" Treated with NS boluses, IV Solu Medrol, IV Flagyl, and 1/2 NS with KCL infusion. Based on the above, could you clarify the appropriate diagnosis, if significant , that supports the above abnormalities and additional evaluation, monitoring, and/or treatment rendered: ( ) Treated for Severe Sepsis ( ) Treated for Severe Sepsis with Septic Shock (x ) NOT Treated for Severe Sepsis ( ) Other, please specify: treated for gastroenteritis, hyperthyroidism, IRON anemia ( ) Clinically unable to determine COMMENTS: PLEASE ALSO DOCUMENT RESPONSE IN PROGRESS NOTES AND/OR DISCHARGE SUMMARY Use of terms such as suspected, likely, or probable (associated with a specific diagnosis that is being evaluated, monitored, or treated as if it exists) are acceptable and can be restated in the discharge summary if not ruled out. MTDD
--- NOTE | 2017-01-17 08:10 | Physician Query Form ---
CLICK EDIT DOCUMENT TO SELECT QUERY ANSWER --> OK --> SIGN Laury Rodrigues RN Clinical Drop Wire Aliner W) [phone] (f) [phone] [email or web address]: Make your selection(s) from the choices in EACH section by typing an "x" and enter comments in the comment section. Please use your independent medical judgment in providing your response. This request does not imply that any particular answer is desired or expected. CLINICAL INDICATORS: (Providers should not edit this section) Height: 5'3" Weight: 109 Airport Manager BMI: 19.3 Nutritional supplements: Cone Picker notes: LOW BMI Other clinical notes: NORMAL WEIGHT, CACHECTIC Based on the above, which following choice most accurately represents the patient's nutritional status? (x ) Malnutrition ( ) mild ( x) moderate ( ) severe ( ) Protein calorie malnutrition ( ) mild ( ) moderate ( ) severe ( ) Emaciation due to malnutrition ( ) Nutritional marasmus ( ) Underweight ( ) No nutritional deficiency ( ) Other, please specify: ( ) Clinically unable to determine Mild Malnutrition (BMI < 18.5, % Normal Body Weight 85-95%) Moderate Malnutrition (BMI < 17, % Normal Body Weight 75-85%) Severe Malnutrition (BMI < 16, % Normal Body Weight < 75%) Source: [place] COMMENTS: PLEASE ALSO DOCUMENT RESPONSE IN PROGRESS NOTES AND/OR DISCHARGE SUMMARY Use of terms such as suspected, likely, or probable (associated with a specific diagnosis that is being evaluated, monitored, or treated as if it exists) are acceptable and can be restated in the discharge summary if not ruled out. MTDD
== END 2017-01-06 13:52 | disposition home or self-care (01) | DRG 812 ==
LOC: N.ED 20:23 → N.EDINP 01-04 00:46 → SUATTDRO 01-04 00:46 → N.3E 01-04 01:12
PROVIDERS: ADMIT Internal Medicine; ATTEND Internal Medicine

== ENCOUNTER 2017-08-28 00:44 | Inpatient (IN) ==
[2017-08-28] MEDS ORDERED: MORPHINE 4 MG/1 ML VIAL IV STA ×2 (01:38→03:19)
[2017-08-28] MEDS ORDERED: ONDANSETRON 4 MG/2 ML VIAL IV STA (01:38)
[2017-08-28] MEDS ORDERED: SODIUM CHLORIDE 0.9% 1,000 ML IV STA (01:38)
[2017-08-28 02:52] LABS: Basophils % 0.4 % (0.0-0.8); Hematocrit 35.9 VOL% (35.7-47.0); Hemoglobin 12.7 GM/DL (12.0-16.0); Immature Granulocytes % 0.6 %; Immature Granulocytes Absolute 0.06 #; Lymphocytes # 0.8 10*3/uL (1.4-4.0); Lymphocytes % 7.5 % (21.3-54.2); Mean Corpuscular HGB Conc 35.4 GM/DL (32-36); Mean Corpuscular Hemoglobin 31 PG (27-34); Mean Corpuscular Volume 88.9 FL (87-102); Mean Platelet Volume 11.4 FL (9.6-12.0); Monocytes # 0.3 10*3/uL (0.11-0.8); Monocytes % 2.9 % (1.7-12.7); Neutrophils # 9.6 10*3/uL (1.4-7.4); Neutrophils % 88.6 % (38.7-73.9); Platelet Count 486 T/CUMM (130-400); Red Blood Count 4.04 MC/CUMM (3.8-5.5); Red Cell Distribution Width 12.6 % (9.3-17.3); White Blood Count 10.9 T/CUMM (4-12)
[2017-08-28 03:06] LABS: Alanine Aminotransferase 23 U/L (13-56); Albumin 4.7 G/DL (3.4-5.0); Alkaline Phosphatase 98 U/L (45-117); Aspartate Amino Transferase 23 U/L (0-37); Blood Urea Nitrogen 9 MG/DL (7-18); Calcium 9.7 MG/DL (8.5-10.1); Glucose 189 MG/DL (74-106); Lactic Acid 3.5 MMOL/L (0.4-2.0); Osmolality,Calculated 280.5 MOS/KG (273-304); Potassium 3.2 MMOL/L (3.5-5.1); Sodium 139 MMOL/L (136-145); Total Protein 8.6 G/DL (6.4-8.3)
[2017-08-28] MEDS ORDERED: METOCLOPRAMIDE 10 MG/2 ML VIAL IV STA (03:19)
[2017-08-28 03:51] LABS: Apearance,Urine CLEAR (Clear); Bilirubin,Urine Negative (Negative); Blood, Urine Negative (Negative); Glucose,Urine (UA) 50 mg/dL (Negative); Ketones,Urine 20 mg/dL (Negative); Mucus,Urine Occasional /LPF (Occasional); Nitrite,Urine Negative (Negative); Protein,Urine Negative; RBC,Urine <1 /HPF (0-4); Squamous Epithelial Cell,Urine Occasional /HPF (0-10); Urine Color Yellow (Yellow); Urine Specific Gravity 1.011 (1.001-1.035); Urine Urobilinogen < 2.0 EU/DL (0.2-1.0)
[2017-08-28] MEDS ORDERED: MORPHINE 4 MG/1 ML VIAL IV PRN (04:33)
[2017-08-28] MEDS ORDERED: PROMETHAZINE 25 MG/1 ML VIAL IM PRN (04:33)
[2017-08-28] MEDS ORDERED: HYOSCYAMINE 0.125 MG TABLET PO PRN (04:37)
[2017-08-28] MEDS ORDERED: KETOROLAC 15 MG/1 ML VIAL IV PRN (04:39)
[2017-08-28] MEDS ORDERED: SODIUM CHLORIDE 0.9% 1,000 ML IV SCH (05:00)
[2017-08-28] MEDS ORDERED: KETOROLAC 30 MG/1 ML VIAL ONE (07:21)
[2017-08-28] MEDS: ONDANSETRON 4 MG/2 ML VIAL IV PRN (07:22)
[2017-08-28] MEDS ORDERED: BLOOD PRESSURE MEDICATION PO SCH (09:00)
[2017-08-28] MEDS ORDERED: HYDROmorphone 2 MG/1 ML VIAL IV PRN (09:42)
[2017-08-28] MEDS: POTASSIUM CHLORIDE RIDER 10 MEQ in PREMIX 1 EACH IV PRN ×7 (10:12→22:01)
[2017-08-28] MEDS: PANTOPRAZOLE 40 MG VIAL IV SCH (10:25)
[2017-08-28] MEDS: SODIUM CHLOR 0.9% KCL 40 MEQ 40 MEQ/1,000 ML BAG IV SCH ×3 (10:30→18:23)
[2017-08-28] MEDS: ENOXAPARIN 40 MG/0.4 ML SYRINGE SUBCUT SCH (10:30)
[2017-08-28] MEDS ORDERED: POTASSIUM CHLORIDE RIDER 10 MEQ in PREMIX 1 EACH IV PRN (10:30)
[2017-08-28] MEDS: methIMAzole 5 MG TABLET PO SCH ×3 (10:30→20:19)
[2017-08-29] MEDS: SODIUM CHLOR 0.9% KCL 40 MEQ 40 MEQ/1,000 ML BAG IV SCH ×4 (02:30→22:47)
[2017-08-29 04:41] LABS: Basophils % 0.4 % (0.0-0.8); Eosinophils # 0.1 10*3/uL (0.0-0.87); Eosinophils % 0.7 % (0.00-10.9); Hemoglobin 11.2 GM/DL (12.0-16.0); Immature Granulocytes % 0.2 %; Immature Granulocytes Absolute 0.02 #; Lymphocytes # 2.7 10*3/uL (1.4-4.0); Lymphocytes % 27.8 % (21.3-54.2); Mean Corpuscular HGB Conc 33.9 GM/DL (32-36); Mean Corpuscular Hemoglobin 31 PG (27-34); Mean Corpuscular Volume 92.2 FL (87-102); Mean Platelet Volume 11.2 FL (9.6-12.0); Monocytes # 0.6 10*3/uL (0.11-0.8); Monocytes % 6.2 % (1.7-12.7); Neutrophils # 6.3 10*3/uL (1.4-7.4); Neutrophils % 64.7 % (38.7-73.9); Platelet Count 366 T/CUMM (130-400); Red Blood Count 3.58 MC/CUMM (3.8-5.5); Red Cell Distribution Width 13.3 % (9.3-17.3); White Blood Count 9.8 T/CUMM (4-12)
[2017-08-29 05:13] LABS: Calcium 8.3 MG/DL (8.5-10.1); Osmolality,Calculated 278.1 MOS/KG (273-304); Potassium 3.9 MMOL/L (3.5-5.1)
[2017-08-29] MEDS: methIMAzole 5 MG TABLET PO SCH (08:45)
[2017-08-29] MEDS: PANTOPRAZOLE 40 MG VIAL IV SCH (08:45)
[2017-08-29] MEDS: ENOXAPARIN 40 MG/0.4 ML SYRINGE SUBCUT SCH (08:45)
[2017-08-29] MEDS: PROMETHAZINE 25 MG/1 ML VIAL IM PRN ×3 (12:25→20:57)
[2017-08-29] MEDS: MORPHINE 4 MG/1 ML VIAL IV PRN ×3 (12:42→20:58)
[2017-08-29] MEDS: ONDANSETRON 4 MG/2 ML VIAL IV PRN ×2 (14:03→19:19)
[2017-08-29] MEDS: hydrALAZINE 20 MG/1 ML VIAL IV PRN (17:07)
[2017-08-30] MEDS: hydrALAZINE 20 MG/1 ML VIAL IV PRN (00:49)
[2017-08-30] MEDS: MORPHINE 4 MG/1 ML VIAL IV PRN ×3 (02:41→22:08)
[2017-08-30] MEDS: PROMETHAZINE 25 MG/1 ML VIAL IM PRN ×2 (02:43→08:45)
[2017-08-30] MEDS: LEVOTHYROXINE 100 MCG VIAL IV SCH (06:09)
[2017-08-30] MEDS: SODIUM CHLOR 0.9% KCL 40 MEQ 40 MEQ/1,000 ML BAG IV SCH ×4 (07:24→18:24)
[2017-08-30] MEDS: PANTOPRAZOLE 40 MG VIAL IV SCH ×2 (08:45→21:58)
[2017-08-30] MEDS: ENOXAPARIN 40 MG/0.4 ML SYRINGE SUBCUT SCH (08:45)
[2017-08-30] MEDS: ONDANSETRON 4 MG/2 ML VIAL IV PRN (22:08)
[2017-08-31] MEDS: SODIUM CHLOR 0.9% KCL 40 MEQ 40 MEQ/1,000 ML BAG IV SCH ×3 (02:02→16:58)
[2017-08-31] MEDS: LEVOTHYROXINE 100 MCG VIAL IV SCH (06:16)
[2017-08-31] MEDS ORDERED: LIDOCAINE 2% 5 ML VIAL ONE (08:45)
[2017-08-31] MEDS ORDERED: PROPOFOL 200 MG/20 ML VIAL IV ONE (08:45)
[2017-08-31] MEDS: PANTOPRAZOLE 40 MG VIAL IV SCH (10:47)
[2017-08-31 17:11] VITALS: BP 149/88
== END 2017-08-31 18:08 | disposition home or self-care (01) | DRG 392 ==
LOC: N.EDINP 00:44 → N.ED 00:44 → N.3E 07:09 → SUATTDRO 08-30 14:28
PROVIDERS: ADMIT Internal Medicine Infectious Disease; ATTEND Family Medicine

== ENCOUNTER 2018-01-05 09:10 | Inpatient (IN) ==
[2018-01-05] MEDS ORDERED: PANTOPRAZOLE 40 MG VIAL IV STA (10:17)
[2018-01-05] MEDS ORDERED: METOCLOPRAMIDE 10 MG/2 ML VIAL IV STA (10:17)
[2018-01-05] MEDS ORDERED: DICYCLOMINE 20 MG/2 ML AMP IM ONE (10:17)
[2018-01-05] MEDS ORDERED: METOCLOPRAMIDE 10 MG/2 ML VIAL ONE (10:19)
[2018-01-05] MEDS ORDERED: ONDANSETRON 4 MG/2 ML VIAL ONE (10:19)
[2018-01-05] MEDS ORDERED: PANTOPRAZOLE 40 MG VIAL IV ONE (10:19)
[2018-01-05] MEDS ORDERED: ONDANSETRON 4 MG/2 ML VIAL IV STA (10:19)
[2018-01-05] MEDS ORDERED: SODIUM CHLORIDE 0.9% 1,000 ML IV STA (10:29)
[2018-01-05 10:45] LABS: Basophils % 0.1 % (0.0-0.8); Hematocrit 42.1 VOL% (35.7-47.0); Hemoglobin 14.7 GM/DL (12.0-16.0); Immature Granulocytes % 0.4 %; Immature Granulocytes Absolute 0.06 #; Lymphocytes # 1.7 10*3/uL (1.4-4.0); Lymphocytes % 11.2 % (21.3-54.2); Mean Corpuscular HGB Conc 34.9 GM/DL (32-36); Mean Corpuscular Hemoglobin 31 PG (27-34); Mean Corpuscular Volume 88.4 FL (87-102); Mean Platelet Volume 11.1 FL (9.6-12.0); Monocytes # 0.8 10*3/uL (0.11-0.8); Monocytes % 5.1 % (1.7-12.7); Neutrophils % 83.2 % (38.7-73.9); Platelet Count 504 T/CUMM (130-400); Red Blood Count 4.76 MC/CUMM (3.8-5.5); Red Cell Distribution Width 15.4 % (9.3-17.3); White Blood Count 15.6 T/CUMM (4-12)
[2018-01-05 11:11] LABS: Alanine Aminotransferase 26 U/L (13-56); Albumin 5.2 G/DL (3.4-5.0); Alkaline Phosphatase 115 U/L (45-117); Aspartate Amino Transferase 40 U/L (0-37); Blood Urea Nitrogen 18 MG/DL (7-18); CKMB % 0.5 %; Calcium 10.4 MG/DL (8.5-10.1); Glucose 132 MG/DL (74-106); Osmolality,Calculated 278.7 MOS/KG (273-304); Potassium 3.4 MMOL/L (3.5-5.1); Sodium 138 MMOL/L (136-145); Total Protein 9.6 G/DL (6.4-8.3); Troponin I < 0.015 NG/ML (0.00-0.045)
[2018-01-05 12:24] LABS: Apearance,Urine Slightly Hazy (Clear); Bacteria,Urine Occasional /HPF (Few); Bilirubin,Urine Negative (Negative); Blood, Urine Negative (Negative); Glucose,Urine (UA) Negative (Negative); Ketones,Urine 20 mg/dL (Negative); Mucus,Urine Moderate /LPF (Occasional); Nitrite,Urine Negative (Negative); Protein,Urine 100 MG/DL; RBC,Urine <1 /HPF (0-4); Squamous Epithelial Cell,Urine Few /HPF (0-10); Urine Color Yellow (Yellow); Urine Specific Gravity 1.024 (1.001-1.035); Urine Urobilinogen < 2.0 EU/DL (0.2-1.0); WBC,Urine 1 /HPF (0-6)
[2018-01-05 13:02] LABS: Barbiturates Screen,Urine Negative (Negative); Benzodiazepines Screen,Urine Negative (Negative); Cannabinoid Screen,Urine Positive (Negative); Opiate Screen,Urine Positive (Negative); Phencyclidine Screen,Urine Negative (Negative)
[2018-01-05] MEDS ORDERED: SODIUM PHOSPHATE ENEMA 133 ML BOTTLE RECTAL ONE (13:38)
[2018-01-05] MEDS ORDERED: METOCLOPRAMIDE 10 MG TABLET PO PRN (13:41)
[2018-01-05] MEDS ORDERED: SODIUM CHLORIDE 0.9% 1,000 ML IV SCH (14:00)
[2018-01-05] MEDS: KETOROLAC 30 MG/1 ML VIAL IV PRN ×2 (17:10→22:55)
[2018-01-05] MEDS: ONDANSETRON 4 MG/2 ML VIAL IV PRN ×2 (17:11→22:54)
[2018-01-05] MEDS: DICYCLOMINE 20 MG/2 ML AMP IM SCH ×2 (17:58→22:54)
[2018-01-05] MEDS ORDERED: SODIUM CHLOR 0.45% KCL 20 MEQ 20 MEQ/1,000 ML BAG IV SCH (19:00)
[2018-01-05] MEDS: ACETAMINOPHEN 500 MG TABLET PO PRN (21:57)
[2018-01-05] MEDS: DOCUSATE SODIUM 100 MG CAPSULE PO SCH (21:58)
[2018-01-06] MEDS: ACETAMINOPHEN 500 MG TABLET PO PRN (03:33)
[2018-01-06] MEDS: DICYCLOMINE 20 MG/2 ML AMP IM SCH ×4 (05:55→23:25)
[2018-01-06] MEDS: LEVOTHYROXINE 100 MCG TABLET PO SCH (06:07)
[2018-01-06 06:17] LABS: Basophils % 0.2 % (0.0-0.8); Eosinophils % 0.1 % (0.00-10.9); Hematocrit 41.4 VOL% (35.7-47.0); Hemoglobin 14.2 GM/DL (12.0-16.0); Immature Granulocytes % 0.3 %; Immature Granulocytes Absolute 0.03 #; Lymphocytes # 2.2 10*3/uL (1.4-4.0); Lymphocytes % 19.5 % (21.3-54.2); Mean Corpuscular HGB Conc 34.3 GM/DL (32-36); Mean Corpuscular Hemoglobin 31 PG (27-34); Mean Corpuscular Volume 88.8 FL (87-102); Mean Platelet Volume 10.5 FL (9.6-12.0); Monocytes # 0.9 10*3/uL (0.11-0.8); Monocytes % 7.8 % (1.7-12.7); Neutrophils % 72.1 % (38.7-73.9); Platelet Count 442 T/CUMM (130-400); Red Blood Count 4.66 MC/CUMM (3.8-5.5); Red Cell Distribution Width 15.1 % (9.3-17.3); White Blood Count 11.1 T/CUMM (4-12)
[2018-01-06 06:42] LABS: Calcium 9.3 MG/DL (8.5-10.1); Osmolality,Calculated 274.7 MOS/KG (273-304); Potassium 3.2 MMOL/L (3.5-5.1)
[2018-01-06] MEDS: MORPHINE 4 MG/1 ML VIAL IV PRN ×3 (08:29→23:28)
[2018-01-06] MEDS: ONDANSETRON 4 MG/2 ML VIAL IV PRN (08:29)
[2018-01-06] MEDS: SODIUM CHLOR 0.9% KCL 40 MEQ 40 MEQ/1,000 ML BAG IV SCH ×3 (08:35→20:49)
[2018-01-06] MEDS: ESTRADIOL 2 MG TABLET PO SCH (09:35)
[2018-01-06] MEDS: DOCUSATE SODIUM 100 MG CAPSULE PO SCH ×2 (09:35→20:57)
[2018-01-06] MEDS: amLODIPine 10 MG TABLET PO SCH (09:35)
[2018-01-06] MEDS: PANTOPRAZOLE 40 MG VIAL IV SCH (09:36)
[2018-01-06] MEDS ORDERED: LORazepam 2 MG/1 ML VIAL ONE (23:11)
[2018-01-07] MEDS: SODIUM CHLOR 0.9% KCL 40 MEQ 40 MEQ/1,000 ML BAG IV SCH ×3 (00:26→19:23)
[2018-01-07] MEDS: DICYCLOMINE 20 MG/2 ML AMP IM SCH ×2 (05:24→11:00)
[2018-01-07] MEDS: LEVOTHYROXINE 100 MCG TABLET PO SCH (06:07)
[2018-01-07 07:39] LABS: Basophils % 0.6 % (0.0-0.8); Eosinophils # 0.1 10*3/uL (0.0-0.87); Eosinophils % 1.1 % (0.00-10.9); Hematocrit 37.5 VOL% (35.7-47.0); Hemoglobin 12.9 GM/DL (12.0-16.0); Immature Granulocytes % 0.1 %; Immature Granulocytes Absolute 0.01 #; Lymphocytes # 2.7 10*3/uL (1.4-4.0); Lymphocytes % 37.6 % (21.3-54.2); Mean Corpuscular HGB Conc 34.4 GM/DL (32-36); Mean Corpuscular Hemoglobin 30 PG (27-34); Mean Corpuscular Volume 88.4 FL (87-102); Mean Platelet Volume 10.5 FL (9.6-12.0); Monocytes # 0.4 10*3/uL (0.11-0.8); Monocytes % 5.1 % (1.7-12.7); Neutrophils % 55.5 % (38.7-73.9); Platelet Count 395 T/CUMM (130-400); Red Blood Count 4.24 MC/CUMM (3.8-5.5); Red Cell Distribution Width 15.1 % (9.3-17.3); White Blood Count 7.2 T/CUMM (4-12)
[2018-01-07 08:01] LABS: Albumin 3.3 G/DL (3.4-5.0); Bilirubin,Total 0.5 MG/DL (0.2-1.0); Calcium 8.2 MG/DL (8.5-10.1); Osmolality,Calculated 275.5 MOS/KG (273-304); Potassium 4.4 MMOL/L (3.5-5.1); Total Protein 6.9 G/DL (6.4-8.3)
[2018-01-07] MEDS: PANTOPRAZOLE 40 MG VIAL IV SCH (09:03)
[2018-01-07] MEDS: amLODIPine 10 MG TABLET PO SCH (09:03)
[2018-01-07] MEDS: ESTRADIOL 2 MG TABLET PO SCH (09:03)
[2018-01-07] MEDS: DOCUSATE SODIUM 100 MG CAPSULE PO SCH ×2 (09:03→21:38)
[2018-01-07] MEDS ORDERED: traMADol 50 MG TABLET PO PRN (16:03)
[2018-01-07] MEDS: METOCLOPRAMIDE 10 MG/10 ML UDCUP PO SCH ×2 (16:41→21:37)
[2018-01-07] MEDS: PANTOPRAZOLE 40 MG TABLET PO SCH (19:38)
[2018-01-08] MEDS: SODIUM CHLOR 0.9% KCL 40 MEQ 40 MEQ/1,000 ML BAG IV SCH (00:01)
[2018-01-08] MEDS: LEVOTHYROXINE 100 MCG TABLET PO SCH (05:41)
[2018-01-08] MEDS: DOCUSATE SODIUM 100 MG CAPSULE PO SCH (09:18)
[2018-01-08] MEDS: ESTRADIOL 2 MG TABLET PO SCH (09:18)
[2018-01-08] MEDS: amLODIPine 10 MG TABLET PO SCH (09:18)
[2018-01-08] MEDS: PANTOPRAZOLE 40 MG TABLET PO SCH (09:18)
[2018-01-08] MEDS: METOCLOPRAMIDE 10 MG/10 ML UDCUP PO SCH ×3 (09:18→16:37)
[2018-01-08 11:14] VITALS: BP 117/74
== END 2018-01-08 16:37 | disposition home or self-care (01) | DRG 103 ==
LOC: N.EDINP 09:10 → N.ED 09:10 → SUATTDRO 15:01 → N.3E 15:54
PROVIDERS: ADMIT Phlebology; ATTEND Internal Medicine Geriatric Medicine

== ENCOUNTER 2018-07-23 04:15 | Observation (INO) ==
[2018-07-23] MEDS ORDERED: SODIUM CHLORIDE 0.9% 1,000 ML IV STA (05:08)
[2018-07-23] MEDS ORDERED: MORPHINE 4 MG/1 ML VIAL IV STA (05:08)
[2018-07-23] MEDS ORDERED: PANTOPRAZOLE 40 MG VIAL IV STA (05:08)
[2018-07-23] MEDS ORDERED: ONDANSETRON 4 MG/2 ML VIAL IV STA ×2 (05:08→08:20)
[2018-07-23 05:26] LABS: Basophils % 0.1 % (0.0-0.8); Hemoglobin 14.5 GM/DL (12.0-16.0); Immature Granulocytes % 0.4 %; Immature Granulocytes Absolute 0.06 #; Lymphocytes # 1.2 10*3/uL (1.4-4.0); Lymphocytes % 8.2 % (21.3-54.2); Mean Corpuscular HGB Conc 35.4 GM/DL (32-36); Mean Corpuscular Hemoglobin 31 PG (27-34); Mean Corpuscular Volume 88.2 FL (87-102); Mean Platelet Volume 11.5 FL (9.6-12.0); Monocytes # 0.6 10*3/uL (0.11-0.8); Monocytes % 4.1 % (1.7-12.7); Neutrophils # 13.3 10*3/uL (1.4-7.4); Neutrophils % 87.2 % (38.7-73.9); Platelet Count 477 T/CUMM (130-400); Red Blood Count 4.65 MC/CUMM (3.8-5.5); Red Cell Distribution Width 14.4 % (9.3-17.3); White Blood Count 15.2 T/CUMM (4-12)
[2018-07-23 05:41] LABS: Alanine Aminotransferase 18 U/L (13-56); Alkaline Phosphatase 142 U/L (45-117); Amylase 58 U/L (25-115); Aspartate Amino Transferase 21 U/L (0-37); Blood Urea Nitrogen 19 MG/DL (7-18); Calcium 10.4 MG/DL (8.5-10.1); Glucose 212 MG/DL (74-106); Lipase < 50.0 U/L (73-393); Osmolality,Calculated 286.4 MOS/KG (273-304); Potassium 3.2 MMOL/L (3.5-5.1); Sodium 140 MMOL/L (136-145); Total Protein 9.7 G/DL (6.4-8.3)
[2018-07-23 07:16] LABS: Apearance,Urine CLEAR (Clear); Bilirubin,Urine Negative (Negative); Blood, Urine Negative (Negative); Glucose,Urine (UA) 50 mg/dL (Negative); Hyaline Casts,Urine 1 /LPF (0-3); Ketones,Urine 5 mg/dL (Negative); Mucus,Urine Occasional /LPF (Occasional); Nitrite,Urine Negative (Negative); Protein,Urine Negative; RBC,Urine <1 /HPF (0-4); Squamous Epithelial Cell,Urine Occasional /HPF (0-10); Urine Color Yellow (Yellow); Urine Specific Gravity 1.048 (1.001-1.035); Urine Urobilinogen < 2.0 EU/DL (0.2-1.0); WBC,Urine <1 /HPF (0-6)
[2018-07-23] MEDS ORDERED: PROMETHAZINE 25 MG/1 ML VIAL IM PRN (07:26)
[2018-07-23] MEDS ORDERED: diphenhydrAMINE CAP 25 MG CAPSULE PO PRN (07:26)
[2018-07-23] MEDS ORDERED: MORPHINE 4 MG/1 ML VIAL IV PRN (07:26)
[2018-07-23] MEDS ORDERED: ONDANSETRON 4 MG/2 ML VIAL IV PRN (07:26)
[2018-07-23] MEDS ORDERED: NICOTINE 21 MG/24 HR PATCH TRANSDERM PRN (07:26)
[2018-07-23 07:50] LABS: Risk Ratio 2.98; Thyroid Stimulating Hormone 4.16 uIU/ml (0.358-3.74); VLDL CHOLESTEROL 14.2 MG/DL
[2018-07-23 08:38] LABS: Lipase < 50.0 U/L (73-393)
[2018-07-23] MEDS ORDERED: PANTOPRAZOLE 40 MG VIAL IV SCH ×2 (09:00→21:00)
[2018-07-23] MEDS ORDERED: HYDROmorphone 2 MG/1 ML VIAL IV STA (09:03)
[2018-07-23] MEDS ORDERED: HYDROmorphone 2 MG/1 ML VIAL ONE (09:04)
[2018-07-23] MEDS ORDERED: PROMETHAZINE 25 MG/1 ML VIAL IV PRN (09:06)
[2018-07-23] MEDS ORDERED: PROMETHAZINE INJ 12.5 MG in SODIUM CHLORIDE 0.9% 50 ML IV PRN (09:09)
[2018-07-23] MEDS ORDERED: PROMETHAZINE INJ 25 MG in SODIUM CHLORIDE 0.9% 50 ML IV PRN (09:11)
[2018-07-23] MEDS: SODIUM CHLORIDE 0.9% 1,000 ML IV SCH ×2 (10:54→18:35)
[2018-07-23] MEDS ORDERED: hydrALAZINE 20 MG/1 ML VIAL IV PRN (11:37)
[2018-07-23] MEDS ORDERED: SCOPOLAMINE 1.5 MG PATCH TRANSDERM SCH (12:00)
[2018-07-23 12:07] LABS: Free T4 (Free Thyroxine) 1.34 NG/DL (0.76-1.46)
[2018-07-23] MEDS ORDERED: METOCLOPRAMIDE 10 MG/2 ML VIAL IV PRN (13:15)
[2018-07-23 13:21] LABS: Barbiturates Screen,Urine Negative (Negative); Benzodiazepines Screen,Urine Negative (Negative); Cannabinoid Screen,Urine Positive (Negative); Opiate Screen,Urine Positive (Negative); Phencyclidine Screen,Urine Negative (Negative)
[2018-07-23] MEDS: DEXT 5% NACL 0.45% KCL 20 MEQ 20 MEQ/1,000 ML BAG IV SCH (17:10)
[2018-07-24] MEDS: DEXT 5% NACL 0.45% KCL 20 MEQ 20 MEQ/1,000 ML BAG IV SCH (04:45)
[2018-07-24 05:30] LABS: Basophils % 0.3 % (0.0-0.8); Eosinophils % 0.3 % (0.00-10.9); Hematocrit 38.1 VOL% (35.7-47.0); Hemoglobin 12.8 GM/DL (12.0-16.0); Immature Granulocytes % 0.4 %; Immature Granulocytes Absolute 0.05 #; Lymphocytes # 2.3 10*3/uL (1.4-4.0); Lymphocytes % 17.2 % (21.3-54.2); Mean Corpuscular HGB Conc 33.6 GM/DL (32-36); Mean Corpuscular Hemoglobin 31 PG (27-34); Mean Corpuscular Volume 91.6 FL (87-102); Mean Platelet Volume 11.7 FL (9.6-12.0); Monocytes # 0.9 10*3/uL (0.11-0.8); Monocytes % 6.9 % (1.7-12.7); Neutrophils # 10.1 10*3/uL (1.4-7.4); Neutrophils % 74.9 % (38.7-73.9); Platelet Count 375 T/CUMM (130-400); Red Blood Count 4.16 MC/CUMM (3.8-5.5); White Blood Count 13.5 T/CUMM (4-12)
[2018-07-24 06:02] LABS: Albumin 4.2 G/DL (3.4-5.0); Bilirubin,Total 0.6 MG/DL (0.2-1.0); Calcium 8.9 MG/DL (8.5-10.1); Osmolality,Calculated 278.3 MOS/KG (273-304); Potassium 3.1 MMOL/L (3.5-5.1)
[2018-07-24 06:19] LABS: Calcium 8.9 MG/DL (8.5-10.1); Osmolality,Calculated 274.5 MOS/KG (273-304); Potassium 3.1 MMOL/L (3.5-5.1)
[2018-07-24] MEDS ORDERED: LEVOTHYROXINE 100 MCG VIAL IV SCH (07:00)
[2018-07-24] MEDS ORDERED: POTASSIUM CHLORIDE RIDER 10 MEQ in PREMIX 1 EACH IV PRN (07:23)
[2018-07-24 07:42] VITALS: BP 144/83
[2018-07-24] MEDS ORDERED: ESTRADIOL 2 MG TABLET PO SCH (09:00)
[2018-07-24] MEDS ORDERED: amLODIPine 10 MG TABLET PO SCH (09:00)
[2018-07-24] MEDS ORDERED: PANTOPRAZOLE 40 MG TABLET PO SCH (19:00)
[2018-07-26 19:06] LABS: Carboxy-THC Interpretation Positive.; Carboxy-THC-by GC/MS >500.0 ng/mL
== END 2018-07-24 11:00 | disposition home or self-care (01) ==
LOC: N.EDINP 04:15 → N.ED 04:15 → N.EDINP 09:13 → N.5E 09:49
PROVIDERS: ADMIT Hospitalist; ATTEND Hospitalist